=== PATIENT | male | born 1950 | race Caucasian/White ===

== ENCOUNTER 2017-01-20 15:35 | Emergency (ER) | payer MEDICARE, BC ==
[2017-01-20 15:43] VITALS: BP 124/80
--- NOTE | 2017-01-20 16:28 | CR ---
Clinical history: 66-year-old male with swollen left ankle (injury). Interpretation: Asymmetric pronounced soft tissue swelling over the lateral malleolus and associated small ankle joint effusion. Subtle periosteal elevation underlying distal left fibula may represent an occult nondisplaced or paige irline fracture (no definite cortical break but there does appear to be a tiny smoothly marginated b clementina avulsion off the lateral malleolus). Small bone spur medial malleolus. No other ankle fracture or disruption of the tibiotalar mortise manuel int. Tiny bone spur at the insertion plantar aponeurosis base of the os calcis. CONCLUSION: Severe sprain and subtle changes suggesting occult nondisplaced fracture distal fibula.
--- NOTE | 2017-01-20 16:30 | EDM.PDOC ---
ED HPI GENERAL MEDICAL PROBLEM - General Chief Complaint: Lower Extremity Injury/Pain Stated Complaint: POSSIBLE BROKEN ANKLE, Time Seen by Provider: 01/20/17 15:47 Source of Information: Reports: Patient, RN Notes Reviewed History Limitations: Reports: No Limitations - History of Present Illness INITIAL COMMENTS - FREE TEXT/NARRATIVE: Patient has pain on left lateral ankle. HE was walking his dog. Dog ran out and patient stepped in a hole. Onset: Today Location: Reports: Lower Extremity, Left Quality: Reports: Ache Severity: Mild Improves with: Reports: None Worsens with: Reports: None Associated Symptoms: Reports: No Other Symptoms Left Ankle Pain Score (Numeric/FACES): 7 - Related Data Allergies Allergy/AdvReac Type Severity Reaction Status Date / Time No Known Allergies Allergy Verified 01/20/17 15:39 Home Meds: Home Meds Multivitamin [Multi-Vitamin Daily] 1 tab PO DAILY 12/05/14 [History] Naproxen Sodium [Aleve] 1 - 2 tab PO DAILY PRN 12/05/14 [History] Past Medical History HEENT History: Reports: Impaired Vision Other Gastrointestinal History: INGUINAL HERNIA RIGHT Genitourinary History: Reports: Prostate Disorder Other Musculoskeletal History: fx big toe left---pinned Other Neuro History: HEMIFACIAL SPASM Oncologic (Cancer) History: Reports: Prostate Other Oncologic History: TRANSPERINEAL SEED IMPLANT 2004 Social & Family History - Family History Family Medical History: Noncontributory - Tobacco Use Smoking Status *Q: Never Smoker Years of Tobacco use: 20 Second Hand Smoke Exposure: No - Caffeine Use Caffeine Use: Reports: Coffee - Alcohol Use Days Per Week of Alcohol Use: 1 Number of Drinks Per Day: 0 Total Drinks Per Week: 0 - Recreational Drug Use Recreational Drug Use: No Drug Use in Last 12 Months: Yes Recreational Drug Type: Reports: Marijuana/Hashish Recreational Drug Use Frequency: Monthly Recreational Drug Last Use: 1 week ago Review of Systems - Review of Systems Review Of Systems: ROS reveals no pertinent complaints other than HPI. ED EXAM, GENERAL - Physical Exam Exam: See Below Exam Limited By: No Limitations General Appearance: Alert, WD/WN, No Apparent Distress Eye Exam: Bilateral Eye: Normal Inspection Ears: Normal External Exam, Normal Canal, Hearing Grossly Normal, Normal TMs Nose: Normal Inspection, Normal Mucosa, No Blood Throat/Mouth: Normal Inspection, Normal Lips, Normal Teeth, Normal Gums, Normal Oropharynx, Normal Voice, No Airway Compromise Head: Atraumatic, Normocephalic Neck: Normal Inspection, Supple, Non-Tender, Full Range of Motion Respiratory/Chest: No Respiratory Distress, Lungs Clear, Normal Breath Sounds, No Accessory Muscle Use, Chest Non-Tender Cardiovascular: Normal Peripheral Pulses, Regular Rate, Rhythm, No Edema, No Gallop, No JVD, No Murmur, No Rub GI/Abdominal: Normal Bowel Sounds, Soft, Non-Tender, No Organomegaly, No Distention, No Abnormal Bruit, No Mass (Male) Exam: Deferred Rectal (Males) Exam: Deferred Back Exam: Normal Inspection, Full Range of Motion, NT Extremities: Normal Inspection, Normal Range of Motion, Non-Tender, Normal Capillary Refill, No Pedal Edema Neurological: Alert, Oriented, CN II-XII Intact, Normal Cognition, Normal Gait, Normal Reflexes, No Motor/Sensory Deficits Psychiatric: Normal Affect, Normal Mood Skin Exam: Other (Right knee abrasion. Left lateral ankle swelling. ) Course - Vital Signs Last Recorded V/S: Last Vital Signs Temp 36.6 C 01/20/17 15:42 Pulse 77 01/20/17 15:42 Resp 18 01/20/17 15:42 BP 124/80 01/20/17 15:42 Pulse Ox 98 01/20/17 15:42 - Orders/Labs/Meds Orders: Active Orders 24 hr Category Date Time Status Ankle 2V Lt [CR] Urgent Exams 01/20/17 15:47 Taken Departure - Departure Time of Disposition: 16:31 Disposition: Home, Self-Care 01 Condition: Good Clinical Impression: Closed fracture of left distal fibula Qualifiers: Encounter type: initial encounter Fracture morphology: unspecified fracture morphology Qualified Code(s): S82.832A - Other fracture of upper and lower end of left fibula, initial encounter for closed fracture - Discharge Information Instructions: Undisplaced Fibular Ankle Fracture Treated With Immobilization, Adult Forms: ED Department Discharge Additional Instructions: Rest, ice and elevate. Walking boot. Follow up with primary care provider in 2 weeks. - My Orders Last 24 Hours: My Active Orders 01/20/17 15:47 Ankle 2V Lt [CR] Urgent - Assessment/Plan Last 24 Hours: My Active Orders 01/20/17 15:47 Ankle 2V Lt [CR] Urgent
== END 2017-01-20 16:36 | disposition home or self-care (01) ==
LOC: DL.ED 15:35
DX: S82.832A Other fracture of upper and lower end of left fibula, initial encounter for closed fracture (principal); H54.7 Unspecified visual loss; Z79.899 Other long term (current) drug therapy; W18.42XA Slipping, tripping and stumbling without falling due to stepping into hole or opening, initial encounter; Y93.K1 Activity, walking an animal
CPT/HCPCS: 73600-LT; 99283

== ENCOUNTER 2021-10-13 05:21 | Day surgery (SDC) | payer MEDICARE, BC ==
[2021-10-13] MEDS ORDERED: Midazolam 1 MG/ML 2 ML SDV IV ONE ×5 (05:22→06:49)
[2021-10-13] MEDS ORDERED: fentaNYL 100 MCG/2 ML SDV IV ONE ×3 (05:22→06:37)
[2021-10-13] MEDS ORDERED: Dextrose 5%-0.45% NaCl 1,000 ML IV SCH (05:50)
[2021-10-13] MEDS ORDERED: Midazolam 1 MG/ML 2 ML SDV ONE (05:53)
[2021-10-13] MEDS ORDERED: fentaNYL 100 MCG/2 ML SDV ONE (05:54)
[2021-10-13 08:32] VITALS: PULSE 52
[2021-10-13 09:37] VITALS: BP 101/64
== END 2021-10-13 09:05 | disposition home or self-care (01) ==
LOC: DL.ENDO 05:21
PROVIDERS: ATTEND Internal Medicine Gastroenterology
DX: Z12.11 Encounter for screening for malignant neoplasm of colon (principal); K62.1 Rectal polyp; E66.09 Other obesity due to excess calories; K57.30 Diverticulosis of large intestine without perforation or abscess without bleeding; K64.4 Residual hemorrhoidal skin tags; Z01.812 Encounter for preprocedural laboratory examination; Z20.822 Contact with and (suspected) exposure to COVID-19; Z85.46 Personal history of malignant neoplasm of prostate
CPT/HCPCS: 45385; J2250; J3010; J7042; U0002; 88305

== ENCOUNTER 2023-05-06 05:25 | Day surgery (SDC) | payer MEDICARE, BC ==
[2023-05-06] MEDS ORDERED: Dextrose 5%-0.45% NaCl 1,000 ML IV SCH (05:30)
[2023-05-06] MEDS ORDERED: fentaNYL 100 MCG/2 ML SDV ONE (06:12)
[2023-05-06] MEDS ORDERED: Midazolam 1 MG/ML 2 ML SDV IV ONE ×3 (06:12→06:32)
[2023-05-06] MEDS ORDERED: fentaNYL 100 MCG/2 ML SDV IV ONE ×3 (06:12→06:31)
[2023-05-06] MEDS ORDERED: Midazolam 1 MG/ML 2 ML SDV ONE (06:12)
[2023-05-06 07:36] VITALS: BP 111/66; PULSE 75
== END 2023-05-06 08:13 | disposition home or self-care (01) ==
LOC: DL.ENDO 05:25
PROVIDERS: ATTEND Internal Medicine Gastroenterology
DX: K29.50 Unspecified chronic gastritis without bleeding (principal); K22.89 Other specified disease of esophagus; R63.4 Abnormal weight loss
CPT/HCPCS: 87077; J2250; J3010; J7042

== ENCOUNTER 2023-08-14 13:50 | Emergency (ER) | payer MEDICARE, BC ==
[2023-08-14] MEDS ORDERED: Sodium Chloride 0.9% 10 ML Syringe FLUSH PRN (14:15)
[2023-08-14] MEDS: Thiamine 500 MG in Sodium Chloride 0.9% 100 ML IV ONE (14:44)
[2023-08-14 14:47] LABS: BASOPHILS PERCENT AUTO 0.4 % (0.0-1.0); EOSINOPHILS PERCENT AUTO 2.2 % (1.0-3.0); HEMATOCRIT 48.8 % (40.0-54.0); HEMOGLOBIN 15.7 g/dL (14.0-18.0); MEAN CORPUSCULAR HEMOGLOBIN 31.3 pg (27.0-34.0); MEAN CORPUSCULAR HGB CONC 32.2 g/dL (33.0-35.0); MEAN CORPUSCULAR VOLUME 97.2 fL (80-100); NEUTROPHILS PERCENT AUTO 67.4 % (42.2-75.2); PLATELET COUNT,PLT 368 10^3/uL (150-450); RED BLOOD CELL COUNT 5.02 10^6/uL (4.6-6.2); WHITE BLOOD CELL COUNT,WBC 6.8 10^3/uL (5.0-10.0)
[2023-08-14 15:04] LABS: ALBUMIN 3.5 g/dL (3.4-5.0); ANION GAP 6.4 mEq/L (7-13); BILIRUBIN TOTAL 0.5 mg/dL (0.2-1.0); BUN/CREATININE RATIO 13.5 (No establ ref range); CREATININE 0.74 mg/dL (0.70-1.30); EST CRCL DRUG DOSING (CG) 88.78 mL/min; POTASSIUM,K 4.4 mmol/L (3.5-5.1); TSH ULTRASENSITIVE 2.97 uIU/mL (0.36-3.74)
[2023-08-14 15:36] VITALS: BP 108/68; PULSE 86
== END 2023-08-14 15:50 | disposition home or self-care (01) ==
LOC: DL.ED 13:50
DX: R53.1 Weakness (principal); R10.9 Unspecified abdominal pain; Z86.16 Personal history of COVID-19; Z79.899 Other long term (current) drug therapy
CPT/HCPCS: 36415; 74018; 80053; 83735; 84443; 85025; 96365; 99285; J3411; J3490; 99284

== ENCOUNTER 2023-09-30 08:15 | Emergency (ER) | payer MEDICARE, BC ==
[2023-09-30 08:55] LABS: BASOPHILS PERCENT AUTO 0.5 % (0.0-1.0); EOSINOPHILS PERCENT AUTO 3.2 % (1.0-3.0); HEMATOCRIT 47.4 % (40.0-54.0); LYMPHOCYTES PERCENT AUTO 23.9 % (20.5-50.1); MEAN CORPUSCULAR HEMOGLOBIN 30.7 pg (27.0-34.0); MEAN CORPUSCULAR HGB CONC 31.6 g/dL (33.0-35.0); MEAN CORPUSCULAR VOLUME 97.1 fL (80-100); MONOCYTES PERCENT AUTO 11.5 % (2-8); NEUTROPHILS PERCENT AUTO 60.9 % (42.2-75.2); PLATELET COUNT,PLT 342 10^3/uL (150-450); RED BLOOD CELL COUNT 4.88 10^6/uL (4.6-6.2); WHITE BLOOD CELL COUNT,WBC 5.6 10^3/uL (5.0-10.0)
[2023-09-30] MEDS: Oxymetazoline 0.05% Nasal Spray 30 ML Bottle NAS ONE (09:38)
[2023-09-30 10:28] VITALS: BP 109/79; PULSE 90
== END 2023-09-30 10:29 | disposition home or self-care (01) ==
LOC: DL.ED 08:15
DX: F45.8 Other somatoform disorders (principal); R09.81 Nasal congestion; G12.21 Amyotrophic lateral sclerosis; Z79.899 Other long term (current) drug therapy
CPT/HCPCS: 36415; 71045; 85025; 99283; 99285; A9270

== ENCOUNTER 2023-11-02 07:53 | Emergency (ER) | payer MEDICARE, BC ==
[2023-11-02 08:10] VITALS: BP 100/85
[2023-11-02 08:12] LABS: BASOPHILS PERCENT AUTO 0.4 % (0.0-1.0); EOSINOPHILS PERCENT AUTO 4.4 % (1.0-3.0); HEMATOCRIT 45.8 % (40.0-54.0); HEMOGLOBIN 14.9 g/dL (14.0-18.0); LYMPHOCYTES PERCENT AUTO 32.1 % (20.5-50.1); MEAN CORPUSCULAR HEMOGLOBIN 31.2 pg (27.0-34.0); MEAN CORPUSCULAR HGB CONC 32.5 g/dL (33.0-35.0); MONOCYTES PERCENT AUTO 11.3 % (2-8); NEUTROPHILS PERCENT AUTO 51.8 % (42.2-75.2); PLATELET COUNT,PLT 330 10^3/uL (150-450); RED BLOOD CELL COUNT 4.77 10^6/uL (4.6-6.2); WHITE BLOOD CELL COUNT,WBC 5.1 10^3/uL (5.0-10.0)
[2023-11-02] MEDS: Sodium Chloride 0.9% 10 ML Syringe FLUSH PRN (08:16)
[2023-11-02] MEDS: Sodium Chloride 0.9% 1,000 ML IV ONE (08:17)
[2023-11-02 08:32] LABS: A/G RATIO 1.2; ALBUMIN 3.8 g/dL (3.4-5.0); ANION GAP 13.8 mEq/L (7-13); BILIRUBIN TOTAL 0.8 mg/dL (0.2-1.0); BUN/CREATININE RATIO 19.5 (No establ ref range); CREATININE 0.77 mg/dL (0.70-1.30); EST CRCL DRUG DOSING (CG) 84.24 mL/min; POTASSIUM,K 3.8 mmol/L (3.5-5.1)
[2023-11-02 08:37] VITALS: PULSE 91
== END 2023-11-02 10:12 | disposition home or self-care (01) ==
LOC: DL.ED 07:53
DX: J96.10 Chronic respiratory failure, unspecified whether with hypoxia or hypercapnia (principal); G12.21 Amyotrophic lateral sclerosis; Z79.899 Other long term (current) drug therapy
CPT/HCPCS: 36415; 71045; 80053; 85025; 94660; 96360; 99285; 99285-25; J3490; J7030

== ENCOUNTER 2023-11-04 18:25 | Emergency (ER) | payer MEDICARE, BC ==
[2023-11-04] MEDS: Glucagon,Human Recombinant 1 MG Vial IVPUSH ONE (18:50)
[2023-11-04 21:06] VITALS: BP 121/87; PULSE 100
== END 2023-11-04 20:36 | disposition home or self-care (01) ==
LOC: DL.ED 18:25
DX: R13.19 Other dysphagia (principal); G12.21 Amyotrophic lateral sclerosis; Z79.899 Other long term (current) drug therapy
CPT/HCPCS: 96374; 99283-25; 99284; J1610